=== PATIENT | male | born 1945 | race Caucasian/White ===

== ENCOUNTER 2021-09-09 11:00 | Inpatient (IN) | payer MEDICARE ==
[~2021-09-09] VITALS: Ht 190.5 cm; Wt 115.4 kg
[2021-09-09 10:00] LABS: BASOPHILS % (AUTO) 0.5 % (0.0-5.0); EOSINOPHILS % (AUTO) 2.1 % (0.0-8.0); HEMATOCRIT 46.2 % (42-54); LYMPHOCYTES % (AUTO) 28.7 % (21.0-51.0); MEAN CORPUSCULAR HEMOGLOBIN 31.6 pg (27.0-33.0); MEAN CORPUSCULAR HGB CONC 33.8 g/dL (32.0-36.0); MEAN CORPUSCULAR VOLUME 93.5 fL (79-99); MONOCYTES % (AUTO) 8.6 % (3.0-13.0); NEUTROPHILS % (AUTO) 59.5 % (40.0-77.0); PLATELET COUNT (AUTO) 319 K/uL (130-400); RED BLOOD CELL COUNT(AUTO) 4.94 MIL/uL (4.50-6.20); RED CELL DISTRIBUTION WIDTH 12.9 % (11.0-15.5); WHITE BLOOD COUNT (AUTO) 10.5 K/uL (4.8-10.8)
[2021-09-09 10:03] LABS: APPEARANCE,URINE Clear (CLEAR); BILIRUBIN,URINE Negative (NEGATIVE); COLOR,URINE Yellow (YELLOW); GLUCOSE, URINE (UA) Negative (NEGATIVE); KETONES,URINE Negative (NEGATIVE); LEUKOCYTE ESTERASE ,URINE Negative (NEGATIVE); NITRATE,URINE Negative (NEGATIVE); OCCULT BLOOD,URINE Negative (NEGATIVE); PH,URINE 7.5 (5.0-8.0); PROTEIN,URINE Negative (NEGATIVE)
[2021-09-09 10:11] LABS: INR 2.57 (0.85-1.15); PROTHROMBIN TIME 25.7 SEC (9.6-11.6)
[2021-09-09 12:05] VITALS: BP 159/77
[2021-09-09] MEDS ORDERED: PRAV80TA21 PO (13:06)
[2021-09-09] MEDS ORDERED: ENOX100D4 SQ (13:06)
[2021-09-09] MEDS ORDERED: DILT180C86 PO (13:06)
[2021-09-09] MEDS ORDERED: FISH1CAP63 PO (13:06)
[2021-09-09] MEDS ORDERED: UBID200C18 PO (13:06)
[2021-09-09] MEDS ORDERED: LIOT25TA12 PO (13:06)
[2021-09-09] MEDS ORDERED: ENAL20TA18 PO (13:06)
[2021-09-09] MEDS ORDERED: LEVO50CA4 PO (13:06)
[2021-09-09] MEDS ORDERED: CHOL400C9 PO (13:06)
[2021-09-09] MEDS ORDERED: WARF2.5T85 PO (13:06)
[2021-09-09] MEDS ORDERED: CLOP75TA14 PO (13:06)
[2021-09-12] VITALS (27 sets, daily range): BP systolic 101–168; BP diastolic 58–96
[2021-09-12] MEDS ORDERED: LACTATED RINGERS 1000ML 1,000 ML IV ONE (08:25)
[2021-09-12] MEDS ORDERED: ACETAMINOPHEN 500 MG TABLET ONE (09:10)
[2021-09-12] MEDS ORDERED: KETOROLAC 15MG/ML VIAL (15MG/ML) ONE (09:10)
[2021-09-12] MEDS ORDERED: CELECOXIB 200 MG CAP ONE (09:11)
[2021-09-12 09:34] LABS: INR 1.22 (0.85-1.15); PROTHROMBIN TIME 13.1 SEC (9.6-11.6)
[2021-09-12] MEDS: CEFAZOLIN SODIUM 1 GM VIAL ONE ×2 (09:51→14:04)
[2021-09-12] MEDS ORDERED: ROPIVACAINE 0.5% 5MG/ML 30ML IJ ONE ×2 (13:22→17:30)
[2021-09-12] MEDS ORDERED: LIDOCAINE PF 100MG/5ML (2%) SYRINGE 5ML ONE (13:22)
[2021-09-12] MEDS ORDERED: PROPOFOL 10 MG/ML 20ML VIAL IV ONE (13:23)
[2021-09-12] MEDS ORDERED: ROCURONIUM 10MG/1ML SYR 10 MG/ML ML ONE ×2 (13:23→14:54)
[2021-09-12] MEDS ORDERED: PHENYLEPHRINE HCL 10 MG/ML 1ML VIAL IV ONE (14:07)
[2021-09-12] MEDS ORDERED: CEFAZOLIN SODIUM 1 GM VIAL ONE ×2 (14:12→16:50)
[2021-09-12] MEDS ORDERED: FENTANYL CITRATE PF 50 MCG/1 ML 2ML VIAL ONE (14:30)
[2021-09-12] MEDS ORDERED: CEFAZOLIN SODIUM 1 GM VIAL IRRIG ONE (14:37)
[2021-09-12] MEDS ORDERED: GLYCOPYRROLATE 1 MG/5 ML SYRINGE ONE ×2 (14:51→17:49)
[2021-09-12] MEDS ORDERED: EPHEDRINE SULFATE 50 MG/ML AMPULE ONE (16:28)
[2021-09-12] MEDS ORDERED: POTASSIUM CHLORIDE 20MEQ/100ML 100 ML IV PRN (17:30)
[2021-09-12] MEDS: ACETAMINOPHEN 500 MG TABLET PO SCH ×2 (17:30→20:57)
[2021-09-12] MEDS ORDERED: DiphenhydrAMINE HCL 50 MG/ML VIAL IVP PRN (17:30)
[2021-09-12] MEDS ORDERED: KETOROLAC 15MG/ML VIAL (15MG/ML) IV PRN (17:30)
[2021-09-12] MEDS ORDERED: FERROUS FUMARATE 324 MG TABLET PO PRN (17:30)
[2021-09-12] MEDS ORDERED: OXYCODONE HCL 5 MG TAB PO PRN ×2 (17:30)
[2021-09-12] MEDS ORDERED: TRAMADOL HCL 50 MG TABLET PO PRN (17:30)
[2021-09-12] MEDS ORDERED: POTASSIUM CHLORIDE 10% ELIXIR 20 MEQ/15 ML UDCUP PO PRN (17:30)
[2021-09-12] MEDS ORDERED: KCL 20 MEQ ERTAB PO PRN (17:30)
[2021-09-12] MEDS ORDERED: TEMAZEPAM 15 MG CAPSULE PO PRN (17:30)
[2021-09-12] MEDS ORDERED: ONDANSETRON 4MG INJ IVP PRN (17:30)
[2021-09-12] MEDS ORDERED: LIDOCAINE HCL-MPF 1% 2ML VIAL IV PRN (17:30)
[2021-09-12] MEDS: 0.9%NACL 1000ML 1,000 ML IV SCH ×2 (17:30→22:55)
[2021-09-12] MEDS ORDERED: NEOSTIGMINE 5MG/5ML SYR IV ONE (17:49)
[2021-09-12] MEDS ORDERED: MEPERIDINE-PF 25 MG/ML SYG ONE ×2 (18:10→18:19)
[2021-09-12] MEDS: CELECOXIB 200 MG CAP PO SCH (20:54)
[2021-09-12] MEDS: PREGABALIN 25 MG CAP PO SCH (20:55)
[2021-09-12] MEDS: FAMOTIDINE 20MG TAB PO SCH (20:55)
[2021-09-12] MEDS: DILTIAZEM 180MG SR CAP PO SCH (20:56)
[2021-09-12] MEDS: ENALAPRIL MALEATE 10 MG TABLET PO SCH (20:57)
[2021-09-12] MEDS ORDERED: WARFARIN SODIUM 5 MG TAB PO SCH (21:00)
[2021-09-12] MEDS: CEFAZOLIN SODIUM 1 GM VIAL IVP SCH (22:54)
[2021-09-13] VITALS (7 sets, daily range): BP systolic 107–127; BP diastolic 53–66
[2021-09-13 04:11] LABS: HEMATOCRIT 33.5 % (42-54); MEAN CORPUSCULAR HEMOGLOBIN 31.2 pg (27.0-33.0); MEAN CORPUSCULAR HGB CONC 32.8 g/dL (32.0-36.0); MEAN CORPUSCULAR VOLUME 94.9 fL (79-99); RED BLOOD CELL COUNT(AUTO) 3.53 MIL/uL (4.50-6.20); RED CELL DISTRIBUTION WIDTH 13.1 % (11.0-15.5); WHITE BLOOD COUNT (AUTO) 11.6 K/uL (4.8-10.8)
[2021-09-13 04:23] LABS: CREATININE 0.9 mg/dL (0.5-1.5); POTASSIUM 4.5 mmol/L (3.5-5.1)
[2021-09-13] MEDS: LEVOTHYROXINE 50 MCG TABLET PO SCH (05:49)
[2021-09-13] MEDS: CEFAZOLIN SODIUM 1 GM VIAL IVP SCH (05:50)
[2021-09-13] MEDS: PREGABALIN 25 MG CAP PO SCH ×2 (08:24→20:29)
[2021-09-13] MEDS: CALCIUM CARB 500MG PO PRN ×2 (08:24→20:31)
[2021-09-13] MEDS: ENALAPRIL MALEATE 10 MG TABLET PO SCH ×2 (08:24→20:39)
[2021-09-13] MEDS: FAMOTIDINE 20MG TAB PO SCH ×2 (08:24→20:31)
[2021-09-13] MEDS: POLYETHYLENE GLYCOL 3350 17 GM POWD.PACK PO SCH (08:24)
[2021-09-13] MEDS: CLOPIDOGREL 75MG TAB PO SCH (08:24)
[2021-09-13] MEDS: DILTIAZEM 180MG SR CAP PO SCH ×2 (08:25→20:30)
[2021-09-13] MEDS: CELECOXIB 200 MG CAP PO SCH ×2 (08:25→20:29)
[2021-09-13] MEDS: LIOTHYRONINE 25 MCG PO SCH (08:27)
[2021-09-13] MEDS: VITAMIN D PO SCH (09:00)
[2021-09-13] MEDS ORDERED: TAMSULOSIN HCL 0.4 MG CAP.ER.24H PO SCH (09:00)
[2021-09-13] MEDS: PRAVASTATIN 80MG PO SCH (09:00)
[2021-09-13] MEDS: 0.9%NACL 1000ML 1,000 ML IV SCH (13:30)
[2021-09-13] MEDS: ACETAMINOPHEN 500 MG TABLET PO SCH ×2 (14:38→20:31)
[2021-09-13] MEDS: WARFARIN SODIUM 2.5 MG TAB PO SCH (18:21)
[2021-09-13] MEDS: TAMSULOSIN HCL 0.4 MG CAP.ER.24H PO SCH (20:30)
[2021-09-14 04:13] VITALS: BP 108/50
[2021-09-14 04:46] LABS: INR 1.21 (0.85-1.15)
[2021-09-14] MEDS: LEVOTHYROXINE 50 MCG TABLET PO SCH (05:57)
[2021-09-14] MEDS: ACETAMINOPHEN 500 MG TABLET PO SCH ×3 (05:58→20:32)
[2021-09-14 07:37] VITALS: BP 101/55
[2021-09-14] MEDS: CLOPIDOGREL 75MG TAB PO SCH (08:20)
[2021-09-14] MEDS: TAMSULOSIN HCL 0.4 MG CAP.ER.24H PO SCH ×2 (08:20→20:32)
[2021-09-14] MEDS: PREGABALIN 25 MG CAP PO SCH ×2 (08:20→20:33)
[2021-09-14] MEDS: FAMOTIDINE 20MG TAB PO SCH ×2 (08:20→20:32)
[2021-09-14] MEDS: ENALAPRIL MALEATE 10 MG TABLET PO SCH ×2 (08:20→20:31)
[2021-09-14] MEDS: CELECOXIB 200 MG CAP PO SCH ×2 (08:20→20:33)
[2021-09-14] MEDS: DILTIAZEM 180MG SR CAP PO SCH ×2 (08:20→20:31)
[2021-09-14] MEDS: POLYETHYLENE GLYCOL 3350 17 GM POWD.PACK PO SCH (08:21)
[2021-09-14] MEDS: VITAMIN D PO SCH (08:33)
[2021-09-14] MEDS: WARFARIN SODIUM 2.5 MG TAB PO SCH (08:33)
[2021-09-14] MEDS: PRAVASTATIN 80MG PO SCH (08:33)
[2021-09-14] MEDS: LIOTHYRONINE 25 MCG PO SCH (08:34)
[2021-09-14] MEDS ORDERED: WARFARIN SODIUM 7.5 MG TAB PO SCH (09:30)
[2021-09-14] MEDS: ENOXAPARIN SODIUM 40 MG/0.4 ML SYRINGE SQ SCH ×2 (09:36→20:34)
[2021-09-14 11:13] VITALS: BP 110/56
[2021-09-14 16:02] VITALS: BP 110/55
[2021-09-14] MEDS ORDERED: WARF10TA45 PO ×2 (16:37)
[2021-09-14] MEDS ORDERED: WARFARIN SODIUM 2 MG TAB PO SCH (17:20)
[2021-09-14 20:17] VITALS: BP 99/48
[2021-09-14 23:43] VITALS: BP 109/48
[2021-09-15 03:54] VITALS: BP 117/68
[2021-09-15 05:12] LABS: INR 1.12 (0.85-1.15); PROTHROMBIN TIME 12.1 SEC (9.6-11.6)
[2021-09-15] MEDS: LEVOTHYROXINE 50 MCG TABLET PO SCH (05:57)
[2021-09-15] MEDS: ACETAMINOPHEN 500 MG TABLET PO SCH ×2 (05:57→13:55)
[2021-09-15 07:52] VITALS: BP 117/51
[2021-09-15] MEDS: PRAVASTATIN 80MG PO SCH (09:00)
[2021-09-15] MEDS: VITAMIN D PO SCH (09:00)
[2021-09-15] MEDS: LIOTHYRONINE 25 MCG PO SCH (09:00)
[2021-09-15] MEDS: POLYETHYLENE GLYCOL 3350 17 GM POWD.PACK PO SCH (09:12)
[2021-09-15] MEDS: ENOXAPARIN SODIUM 40 MG/0.4 ML SYRINGE SQ SCH ×2 (09:13→16:29)
[2021-09-15] MEDS: CLOPIDOGREL 75MG TAB PO SCH (09:15)
[2021-09-15] MEDS: FAMOTIDINE 20MG TAB PO SCH (09:15)
[2021-09-15] MEDS: DILTIAZEM 180MG SR CAP PO SCH (09:15)
[2021-09-15] MEDS: TAMSULOSIN HCL 0.4 MG CAP.ER.24H PO SCH (09:15)
[2021-09-15] MEDS: CELECOXIB 200 MG CAP PO SCH (09:15)
[2021-09-15] MEDS: PREGABALIN 25 MG CAP PO SCH (09:16)
[2021-09-15] MEDS: ENALAPRIL MALEATE 10 MG TABLET PO SCH (09:16)
[2021-09-15 11:36] VITALS: BP 117/50
[2021-09-15] MEDS ORDERED: ENOX100D4 SQ (14:48)
[2021-09-15] MEDS ORDERED: HYDR-4060 PO (14:48)
[2021-09-15] MEDS ORDERED: WARFARIN SODIUM 2 MG TAB PO SCH (16:00)
[2021-09-15] MEDS ORDERED: BISACODYL 10 MG SUPP.RECT RC PRN (17:30)
[2021-09-20] MEDS ORDERED: WARFARIN SODIUM 10 MG TABLET PO SCH (16:00)
== END 2021-09-15 17:00 | disposition home health service (06) | DRG 470 ==
LOC: EDSTATUS 11:00 → DAHIP 09-12 08:16 → 4AH 09-12 18:49
PROVIDERS: ADMIT Orthopaedic Surgery; ATTEND Orthopaedic Surgery
PROC: 0SRB0JZ Replacement of Left Hip Joint with Synthetic Substitute, Open Approach (ICD-10-PCS; principal; 2021-09-12 14:31)
DX: M16.12 Unilateral primary osteoarthritis, left hip (principal); I48.0 Paroxysmal atrial fibrillation; I10 Essential (primary) hypertension; E78.5 Hyperlipidemia, unspecified; E03.9 Hypothyroidism, unspecified; Z20.822 Contact with and (suspected) exposure to COVID-19; D64.9 Anemia, unspecified; Z96.651 Presence of right artificial knee joint; Z82.49 Family history of ischemic heart disease and other diseases of the circulatory system; Z87.891 Personal history of nicotine dependence; Z79.01 Long term (current) use of anticoagulants; Z86.73 Personal history of transient ischemic attack (TIA), and cerebral infarction without residual deficits
CPT/HCPCS: 36415; 73503; 80048; 81003; 85025; 85027; 85610; 86850; 86900; 86901; 87635; 87641; 96374; 97039; C1776; G0378; J0690; J1650; J1885; J2001; J2175; J2370; J2704; J2710; J2795; J3010; J3490; J7030; J7040; J7120

== ENCOUNTER → 2022-09-04 | Outpatient (CLI) | payer MEDICARE ==
[~2022-09-04] MED LIST: CLOP-31 PO; DILT120T PO; ENAL-91 PO; LEVO50CA4 PO; MULT-1203 PO; OMEG-125 PO; PRAV80TA21 PO; UBID200C18 PO; WARF10TA45 PO; WARF7.5T49 PO
== END | disposition home or self-care (01) ==
LOC: LAB 11:45
PROVIDERS: ATTEND Internal Medicine Cardiovascular Disease
DX: I10 Essential (primary) hypertension (principal)
CPT/HCPCS: 36415; 83880

== ENCOUNTER → 2022-09-06 | Outpatient (CLI) | payer MEDICARE | END | disposition home or self-care (01) | LOC: SHCH 14:01 | PROVIDERS: ATTEND Internal Medicine Cardiovascular Disease | DX: I34.0 Nonrheumatic mitral (valve) insufficiency (principal); I25.5 Ischemic cardiomyopathy | CPT/HCPCS: 93306 ==

== ENCOUNTER → 2022-09-13 | Outpatient (CLI) | payer MEDICARE ==
[2022-09-13 10:56] LABS: INR 1.46 (0.85-1.15); PROTHROMBIN TIME 15.6 SEC (9.6-11.6)
[2022-09-13 10:57] LABS: PARTIAL THROMBOPLASTIN TIME 33.7 SEC (26.3-35.5)
[2022-09-13 15:53] LABS: SPECIMENTYPE,BODY FLUID PLEURAL
[2022-09-13 15:54] LABS: APPEARANCE BODY FLUID SLIGHTLY CLOUDY (CLEAR); COLOR,BODY FLUID YELLOW (LT YELLOW); TOTAL VOLUME,BODY FLUID 1500 mL
[2022-09-13 15:57] LABS: BODY FLUID RBC 856 /cu. mm.; BODY FLUID WBC 378 /cu. mm.
[2022-09-13 17:01] LABS: BF LYMPHOCYTE 65 %
== END | disposition home or self-care (01) ==
LOC: RAH 10:00
PROVIDERS: ATTEND Internal Medicine Cardiovascular Disease
DX: R06.02 Shortness of breath (principal); J90 Pleural effusion, not elsewhere classified; Z79.899 Other long term (current) drug therapy
CPT/HCPCS: 32555; 71045; 89051; 85610; 85730; 87071; 87205; 36415; C1729

== ENCOUNTER 2024-03-02 00:18 | Emergency (ER) | payer MEDICARE ==
[~2024-03-02] VITALS: Ht 190.5 cm; Wt 113.4 kg
[2024-03-02 00:20] VITALS: BP 133/68; PULSE 84; RESP 18; TEMP 97.1; O2SAT 97
[2024-03-02] MEDS ORDERED: OCTYL 2-CYANOACRYLATE 1 EACH TP ONE (00:30)
== END 2024-03-02 01:54 | disposition home or self-care (01) ==
LOC: EDH 00:18
DX: S91.115A Laceration without foreign body of left lesser toe(s) without damage to nail, initial encounter (principal); E03.9 Hypothyroidism, unspecified; E11.9 Type 2 diabetes mellitus without complications; E78.00 Pure hypercholesterolemia, unspecified; I10 Essential (primary) hypertension; I48.91 Unspecified atrial fibrillation; M19.90 Unspecified osteoarthritis, unspecified site; Z79.01 Long term (current) use of anticoagulants; Z79.890 Hormone replacement therapy; Z86.73 Personal history of transient ischemic attack (TIA), and cerebral infarction without residual deficits; Z95.1 Presence of aortocoronary bypass graft; W45.8XXA Other foreign body or object entering through skin, initial encounter; Y93.89 Activity, other specified; Y92.89 Other specified places as the place of occurrence of the external cause; Y99.8 Other external cause status
CPT/HCPCS: 12001; 99282

== ENCOUNTER 2025-04-14 08:06 | Observation (INO) | payer MEDICARE ==
[~2025-04-14] VITALS: Ht 188 cm; Wt 105.7 kg
[~2025-04-14 08:06] MED LIST changes: -LEVO50CA4 PO; +LEVO50CA5 PO; -PRAV80TA21 PO; +PRAV80TA75 PO
[2025-04-14 08:37] LABS: IMMATURE GRANULOCYTE ABSOLUTE 0.06 K/uL (0-1); NUCLEATED RED BLOOD CELLS 0.0 % (0.0-0.19); PLATELET COUNT (AUTO) 298 K/uL (130-400); RED BLOOD CELL COUNT(AUTO) 5.03 MIL/uL (4.50-6.20); RED CELL DISTRIBUTION WIDTH 13.2 % (11.0-15.5); WHITE BLOOD COUNT (AUTO) 15.1 K/uL (4.8-10.8)
[2025-04-14 08:46] LABS: CREATININE 0.9 mg/dL (0.5-1.3); GLOMERULAR FILTR. RATE CALC 86.0 mL/min (>90); GLUCOSE,RANDOM 121.0 mg/dL (70-105); SODIUM SERUM 137.0 mmol/L (136-145); UREA NITROGEN, BLOOD 9.0 mg/dL (7-18)
--- NOTE | 2025-04-14 08:46 | EKG ---
[facility] Test Date: 2025-04-14 Test Time: 08:16:48 Pat Name: CLIFF DAVIS Department: [facility] Room: 226 Gender: M Data Collection Interviewer: [id number] : 1945 Requested By: PRICILA MONTERO Order Number: [id number] Reading MD: Rama Shipman Measurements Intervals [place] Rate: 88 P: 0 TX: 0 QRS: -9 QRSD: 97 T: 34 QT: 395 QTc: 478 Interpretive Statements Atrial fibrillation Anterior infarct, old Compared to ECG 06/14/2022 06:05:42 Myocardial infarct finding now present ST (T wave) deviation no longer present Possible ischemia no longer present Prolonged QT interval no longer present Electronically Signed On 04-15-2025 08:44:45 SUPPLY CHAIN TECH by Rama Shipman Please click the below link to view image of tracing.
--- NOTE | 2025-04-14 08:48 | HMCIMG ---
EXAM: CR Chest, single view. CLINICAL HISTORY: Shortness of breath. COMPARISON: None FINDINGS: The lungs show no infiltrate or other acute findings. No pleural effusion or pneumothorax. Poststernotomy status. Moderate cardiomegaly with bilateral pulmonary congestion. Probable cardiac loop recorder in the left parasternal region. No acute osseous abnormality. IMPRESSION: Poststernotomy status. Moderate cardiomegaly with bilateral pulmonary congestion. Probable cardiac loop recorder in the left parasternal region. /[place]
[2025-04-14 08:51] LABS: ASPARTATE AMINOTRANSFERASE 21.0 U/L (10-37); CREATINE KINASE, TOTAL 53.0 U/L (21-232); TOTAL PROTEIN, SERUM 8.1 g/dL (6.0-8.3)
[2025-04-14 09:47] LABS: INR 1.14 (0.85-1.15)
[2025-04-14] MEDS: ASPIRIN 81 MG EC TAB PO SCH (10:00)
[2025-04-14] MEDS ORDERED: BENZONATATE 100 MG CAPSULE PO PRN (10:00)
[2025-04-14 10:20] LABS: ABG BASE EXCESS 2.4 mmol/L (-2.0-3.0); ABG HCO3 26.4 mmol/L (21.0-28.0); ABG OXYGEN SATURATION 94.6 % (94.0-98.0); ABG PCO2 39 mmHg (35-48); ABG PH 7.449 (7.350-7.450); CARBON MONOXIDE 1.3 % (0.5-1.5); DEVICE COMMENT LR; PO2, ARTERIAL BG 68.5 mmHg (83.0-108.0); TEMPERATURE, CELSIUS BG 37.0 CELSIUS (35.5-37.0); VENT MODE, BG RA (ROOM AIR)
[2025-04-14 10:28] LABS: ASPARTATE AMINOTRANSFERASE 19.0 U/L (10-37); CREATINE KINASE, TOTAL 50.0 U/L (21-232); CREATININE 0.8 mg/dL (0.5-1.3); GLOMERULAR FILTR. RATE CALC 89.0 mL/min (>90); GLUCOSE,RANDOM 112.0 mg/dL (70-105); SODIUM SERUM 136.0 mmol/L (136-145); TOTAL PROTEIN, SERUM 7.5 g/dL (6.0-8.3); UREA NITROGEN, BLOOD 9.0 mg/dL (7-18)
[2025-04-14] MEDS: DOXYCYCLINE 100MG+NS 250ML 250 ML IV SCH (10:41)
--- NOTE | 2025-04-14 10:44 | ERN ---
ED Note History of Present Illness Stated Complaint: ACUTE ON CHRONIC CHF,SUSPECTED CAP,HYPOXIC RESP F Chief Complaint: Shortness of Breath Time Seen by MD: 08:16 Dictation: 79-year-old male presents to the emergency department generalized weakness and shortness of breath over the past few days worse this morning. Patient has a history of CHF and atrial fibrillation on Eliquis. Patient denies any fever or increasing cough. Allergies: Coded Allergies: No Allergy Information Available (Verified Allergy, Unknown, 06/11/22) Home Meds Reported Medications Multivitamin (Multi Vitamin Daily) 1 Each Tablet, 1 EACH PO HS, TAB 06/20/22 Ubidecarenone (Co Q-10) 200 Mg Capsule, 200 MG PO HS, CAP 06/20/22 Pray-3S/Dha/Epa/Fish Oil (Fish Oil Pray-3 Softgel) 1 Each Capsule.dr, 1 EACH PO AM, CAP 06/20/22 Clopidogrel Bisulfate (Plavix) 75 Mg Tablet, 75 MG PO AM, TAB 06/20/22 Levothyroxine Sodium (Levothyroxine) 50 Mcg Capsule, 50 MCG PO ACBKFST, CAP 06/20/22 Pravastatin Sodium (Pravastatin Sodium) 80 Mg Tablet, 80 MG PO HS, TAB 06/20/22 Enalapril Maleate (Enalapril Maleate) 20 Mg Tablet, 20 MG PO BID, TAB 06/20/22 Diltiazem HCl (Diltiazem HCl) 120 Mg Tablet, 180 MG PO BID, TAB 06/20/22 Warfarin Sodium (Warfarin Sodium) 10 Mg Tablet, 10 MG PO every sunday, TAB 06/20/22 Warfarin Sodium (Warfarin Sodium) 7.5 Mg Tablet, 8 MG PO [id number], TAB 06/20/22 Levothyroxine Sodium (Levothyroxine) 50 Mcg Capsule, 50 MCG PO DAILY, CAP 09/09/21 Past Medical History Past Medical History: A-Fib, Cancer, CHF, Hypertension, Hypothyroid, Other Additional Past Medical Hx: CELL CARCINOMA, TIA Surgical History: CABG, Other Surgical History Other: ROTATOR CUFF, LEFT HIP REPLACED Social History: Negative, Lives with family Review of System Dictation Constitutional: Negative for fever,chills, and weight loss Eyes: Negative for injury, pain,redness, and discharge ENT: Negative for injury,pain or swelling Cardiovascular: Negative for chest pain, palpitations, and edema Respiratory: Per HPI Abdomen/GI: Negative for abdominal pain, nausea, vomiting, diarrhea, and constipation Back: Negative for injury and pain : Negative for injury, bleeding and discharge MS/Extremity: Negative for injury and deformity Skin: Negative for rash, and discoloration Neuro: Negative for headache, weakness, numbness, tingling, and seizure Psych: Negative for suicide ideation, homicidal ideation, and hallucinations Initial Vital Sign VS Vital Signs Date Time Temp Pulse Resp B/P (MAP) Pulse Ox O2 Delivery O2 Flow Rate FiO2 04/14/25 08:11 97.3 96 20 138/93 95 0 04/14/25 09:02 Nasal Cannula* 28 Physical Exam Dictation General: awake, alert, NAD Head/Face: Normocephalic, atraumatic Eyes: PERRL, EOMI, vision at baseline ENT: oral cavity clear, TMs clear, no signs of infection Neck: Trachea midline, supple, no nuchal rigidity Cardiovascular: RRR, normal S1/S2, No MRGs, no JVD Respiratory: Crackles at the bases bilaterally Abdomen: Soft, non-tender, non-distended, normal bowel sounds, no guarding or rebound. Skin: Warm, dry, normal turgor, no rash MS/Extremity: Pulses equal, no cyanosis, neurovascular intact, FROM Neuro: COAx4, GCS 15, strength 5/5, CN 2-12 intact, normal cerebellar exam, normal gait, Psych: Normal behavior, mood, and affect normal Results (Laboratory/Radiology) Laboratory/Radiology Laboratory Tests Test 04/14/25 08:28 04/14/25 09:53 04/14/25 10:19 White Blood Count 15.1 K/uL (4.8-10.8) H Red Blood Count 5.03 MIL/uL (4.50-6.20) Hemoglobin 15.1 g/dL (14.0-18.0) Hematocrit 46.9 % (42-54) Mean Corpuscular Volume 93.2 fL (79-99) Mean Corpuscular Hemoglobin 30.0 pg (27.0-33.0) Mean Corpuscular Hemoglobin Concent 32.2 g/dL (32.0-36.0) Red Cell Distribution Width 13.2 % (11.0-15.5) Platelet Count 298 K/uL (130-400) Mean Platelet Volume 10.9 fL (7.5-10.5) H Immature Granulocyte % (Auto) 0.4 % (0-1) Neutrophils (%) (Auto) 81.4 % (40.0-77.0) H Lymphocytes (%) (Auto) 10.0 % (21.0-51.0) L Monocytes (%) (Auto) 7.9 % (3.0-13.0) Eosinophils (%) (Auto) 0.1 % (0.0-8.0) Basophils (%) (Auto) 0.2 % (0.0-5.0) Neutrophils # (Auto) 12.3 K/uL (1.8-7.7) H Lymphocytes # (Auto) 1.5 K/uL (1.0-4.8) Monocytes # (Auto) 1.2 K/uL (0.1-1.0) H Eosinophils # (Auto) 0.02 K/uL (0.00-0.70) Basophils # (Auto) 0.03 K/uL (0.00-0.20) Absolute Immature Granulocyte (auto 0.06 K/uL (0-1) Nucleated Red Blood Cells 0.0 % (0.0-0.19) Prothrombin Time 11.9 SEC (9.6-11.6) H Prothromb Time International Ratio 1.14 (0.85-1.15) Activated Partial Thromboplast Time 30.8 SEC (26.3-35.5) Sodium Level 137 mmol/L (136-145) Potassium Level 3.9 mmol/L (3.5-5.1) Chloride Level 99 mmol/L (101-111) L Carbon Dioxide Level 32 mmol/L (21-32) Blood Urea Nitrogen 9 mg/dL (7-18) Creatinine 0.9 mg/dL (0.5-1.3) Glomerular Filtration Rate Calc 86 mL/min (>90) Random Glucose 121 mg/dL (70-105) H Lactic Acid Level 2.4 mmol/L (0.8-2.5) 1.4 mmol/L (0.8-2.5) Total Calcium 9.1 mg/dL (8.5-10.1) Total Bilirubin 1.4 mg/dL (0.2-1.0) H Direct Bilirubin 0.4 mg/dL (0.0-0.3) H Aspartate Amino Transf (AST/SGOT) 21 U/L (10-37) Alanine Aminotransferase (ALT/SGPT) 16 U/L (12-78) Alkaline Phosphatase 108 U/L (50-136) Total Creatine Kinase 53 U/L (21-232) # Troponin I High Sensitivity 35 ng/L (4-75) B-Type Natriuretic Peptide 1360 pg/mL (0-100) H Total Protein 8.1 g/dL (6.0-8.3) Albumin 3.9 g/dL (3.5-5.0) Procalcitonin < 0.05 ng/mL (0.05-0.5) L Blood Gas Specimen Type Arterial Arterial Blood pH 7.449 (7.350-7.450) Arterial Blood Partial Pressure CO2 39 mmHg (35-48) Arterial Blood Partial Pressure O2 68.5 mmHg (83.0-108.0) L Arterial Blood HCO3 26.4 mmol/L (21.0-28.0) Arterial Blood Oxygen Saturation 94.6 % (94.0-98.0) Arterial Blood Base Excess 2.4 mmol/L (-2.0-3.0) Hemoglobin (Blood Gas) 15.7 g/dL (13.5-17.5) Sodium (Blood Gas) 140 MMOL/L (136-145) Bedside Potassium (Blood Gas) 3.6 MMOL/L (3.4-4.5) Bedside Chloride (Blood Gas) 100 MMOL/L (98-107) Bedside Glucose (Blood Gas) 113 MG/DL (65-95) H Bedside Ionized Calcium (Blood Gas) 1.16 MMOL/L (1.15-1.33) Bedside Lactic Acid (Blood Gas) 1.31 MMOL/L (0.36-0.75) H Blood Gas Temperature 37.0 CELSIUS (35.5-37.0) Blood Gas Vent Mode RA (ROOM AIR) FiO2 21.0 % Blood Gas Specimen Comment LR Labs Reviewed?: Yes EKG Comment: Atrial fibrillation heart rate 88 no STEMI or STEMI equivalent ED Course ED Course Orders Procedure Category Date Status Time B-Type Natriuretic LAB 04/14/25 In Process Peptide 08:16 12 Lead Ekg Tracing- EKG 04/14/25 Complete Technical 08:16 Basic Metabolic Panel LAB 04/14/25 Complete 08:16 Blood Cult PIEDAD 04/14/25 In Process 08:16 Cbc With Differential LAB 04/14/25 In Process 08:16 Creatine Kinase, Total LAB 04/14/25 Complete 08:16 Hepatic Function Panel LAB 04/14/25 Complete 08:16 Lactic Acid LAB 04/14/25 Complete 08:16 Pt And Ptt LAB 04/14/25 Complete 08:16 Troponin I High LAB 04/14/25 Complete Sensitivity 08:16 Chest 1vw RAD 04/14/25 Resulted 08:16 Covid19 (Sars Antigen LAB 04/14/25 Logged Rapid) 08:16 Furosemide 40mg Vial PHA 04/14/25 Complete (Lasix 40mg Vial) 09:22 Vital Signs(Adult CPOE 04/14/25 Transmitted Hospitalist) 09:36 Daily Weights CPOE 04/14/25 Transmitted 09:36 I&O Q Shift CPOE 04/14/25 Transmitted 09:36 Ondansetron 4mg Inj PHA 04/14/25 In Process (Zofran 4mg Inj) 10:00 Ipratropium 0.5 PHA 04/14/25 In Process Mg/2.5 Ml Inh 10:00 Nurse To Enter Home CPOE 04/14/25 Transmitted Medication 09:36 Admit Orders ADM 04/14/25 Transmitted 09:36 Heart Healthy Diet DIET 04/14/25 Transmitted Lunch Apply Scds CPOE 04/14/25 Transmitted 09:36 Comprehensive LAB 04/14/25 In Process Metabolic Panel 09:36 Thyroid Stimulating LAB 04/14/25 In Process Hormone 09:36 Cardiac Panel LAB 04/14/25 In Process 09:36 Cardiac Panel LAB 04/14/25 Logged 17:36 Cardiac Panel LAB 04/15/25 Verified 01:36 Lactic Acid LAB 04/14/25 In Process 09:36 Respiratory Cult PIEDAD 04/14/25 Logged W/Gram Stain 09:36 Arterial Blood Gas RT 04/14/25 Transmitted 09:36 Procalcitonin LAB 04/14/25 Complete 09:36 Echo 2-D Complete ECHO 04/14/25 Logged 09:36 Case Management CM 04/14/25 Transmitted Evaluation 09:36 Pt Eval Request PT 04/14/25 Transmitted 09:36 Famotidine 20mg Tab PHA 04/14/25 In Process (Pepcid 20mg Tab) 21:00 Furosemide 40mg Vial PHA 04/14/25 In Process (Lasix 40mg Vial) 21:00 Doxycycline 100mg+Ns PHA 04/14/25 In Process 250ml (Doxycycline 10:00 Benzonatate 100 Mg PHA 04/14/25 In Process Capsule (Tessalon 100 10:00 Hydralazine 20mg Inj PHA 04/14/25 In Process (Apresoline 20mg In 10:00 Aspirin 81mg Ec Tab PHA 04/14/25 In Process (Aspirin 81mg Ec Tab 10:00 Ceftriaxone 2gm Vial PHA 04/14/25 In Process (Rocephin 2gm Inj) 10:00 Sodium Chloride 3% PHA 04/14/25 Complete Inh (Sodium Chloride 09:57 Arterial Blood Gas LAB 04/14/25 Complete Arterial + 10:19 Current Medications Medications (Trade) Dose Ordered Sig/Chema Route PRN Reason Start Time Stop Time Status Last Admin Dose Admin Furosemide (LASix 40MG VIAL) 80 mg ONCE STAT IV 04/14/25 09:22 04/14/25 09:24 DC 04/14/25 10:13 Vital Signs Date Time Temp Pulse Resp B/P (MAP) Pulse Ox O2 Delivery O2 Flow Rate FiO2 04/14/25 09:02 98.1 75 20 164/83 98 Nasal Cannula* 2 28 04/14/25 08:11 97.3 96 20 138/93 95 0 Medical Decision Making MDM MDM: Differential diagnosis: Rationale: Tests considered and ordered secondary to shared decision making include: labs, ECG and radiology Previous outside records reviewed: Old ER visits. Risk of complication and/or morbidity or mortality of patient management: None Medications-Per medication reconciliation Need for hospitalization: Patient does meet criteria for hospitalization. Need for emergency major/minor surgery: No There are no social concerns with this patient. Prescription drug management Prescriptions will include symptomatic care Patient's prior external medical records from other ER visits were reviewed by me as indicated. Prior testing and results from previous visits were reviewed. Prior tests were taken into account with medical decision making and resource utilization, independent historian/historians were used to obtain complete medical history. I independently interpreted the test that were performed, results were reviewed by me and considered findings on radiology if ordered. Medical management and examination interpretation discussions were had by me with other qualified healthcare professionals as indicated for the patient's care. 79-year-old male CHF exacerbation acute on chronic fluid overload, hypoxemia on ABG placed on oxygen and IV Lasix emanating for further care and evaluation. Critical Care Note Comment(s) Total critical care time was 33 minutes. Excluding time for procedures. Management of critically ill patient with concern for acute decompensation. Management included interpretation of laboratory values and imaging, h emodynamics, time for consultation with consultants and admitting physician. DX & DISP Disposition: Inpatient Departure Impression: Primary Impression: Acute exacerbation of CHF (congestive heart failure) Additional Impression: Hypoxemia Condition: Stable Referrals: DAVID HUERTAS MD (PCP) PRICILA MONTERO MD Apr 14, 2025 10:44
[2025-04-14 10:49] VITALS: PULSE 90; RESP 20
[2025-04-14] MEDS: SODIUM CHLORIDE 3% FOR INHALATION 4 ML/AMP VIAL.NEB IH ONE ×3 (10:49→20:05)
[2025-04-14 10:50] VITALS: PULSE 92; RESP 20; O2SAT 98
[2025-04-14 15:02] VITALS: PULSE 88; RESP 20
--- NOTE | 2025-04-14 15:47 | NUR ---
DCP:HOME Pt currently lives at home with his Rafaela Brown [phone]. Pt does have a cane, walker, and CPAP that he uses at home. Pt denies having a provider or home health services. Pt states that he can complete ADLs independently. PCP is Dr. Johnathan Bowman and uses [facility] for any RX needs. At DC pt will want to go home and family can assist with transportation.
--- NOTE | 2025-04-14 17:12 | HP ---
[facility] HISTORY & PHYSICAL Date Patient Seen: Apr 14, 2025 Time of Visit: 16:48 Supervising Physician: Dr. Lamar Gilbert Primary Care Physician: Dr. Johnathan Bowman Outpatient Specialists: Dr. Matt Robert (Cardiology) Inpatient Consults: Dr. Matt Robert (Cardiology) PROBLEM LIST: Acute hypoxic respiratory failure, requiring supplemental oxygen Acute on chronic systolic CHF exacerbation, (echo LV EF 35-40%) Hypertension uncontrolled CHRONIC PROBLEM LIST: CAD s/p CABG 2022 Hypertension Hyperlipidemia Atrial fibrillation on anticoagulation, Eliquis 5 mg p.o. b.i.d. Obesity, BMI 31.8 PLAN: Telemetry. Supplemental oxygen, keep SpO2 greater than 92%. Lasix 40 mg IV b.i.d. Diet heart healthy, 2 g low-sodium Fluid limit 1.5 L a day Strict I&O Daily weight Review and reconcile patient's home medications GI prophylaxis Protonix 40 mg p.o. DVT prophylaxis managed with Eliquis 5 mg p.o. b.i.d. Antibiotics: Ceftriaxone 2 g IV Q 24 hours and doxycycline 100 mg IV b.i.d. HPI: Preston Brown, 79-year-old gentleman patient of Dr. Johnathan Bowman, health history: AFib, on anticoagulation therapy, Eliquis 5 mg p.o. b.i.d., CHF, (echo last EF 35-40%), hypertension, CAD status post CABG 2022, hypothyroidism, hyperlipidemia, and obesity presents to the emergency department today, on 04/14/2025 with dyspnea patient reports onset two days ago and progressively worsening quickly. Laboratory results: WBC 15.1, hemoglobin 15.1, hematocrit 46.9%, platelets 298, sodium 136, potassium 3.5, BUN nine, creatinine 0.8, GFR 89, lactic acid 1.5, total calcium 8.9, BNP 1360 albumin 3.6, TSH 0.94.. Vital signs: Temp 98.1, pulse 75, respirations 20, blood pressure 164/83, oxygen saturation 98% on 2 L, FiO2 28 Chest x-ray one view cardiomegaly with pulmonary vascular congestion. Patient was assessed and seen in the ED Stephens#[id number], with spouse present, awake alert and oriented requiring supplemental oxygen. PAST MEDICAL HX: see above PAST SURGICAL HX: noncontributory SOCIAL HISTORY: No tobacco, ETOH, or illicit drug use Coded Allergies: No Allergy Information Available (Verified Allergy, Unknown, 06/11/22) REVIEW OF SYSTEMS: 12 point ROS reviewed with patient. Pertinent positives mentioned above. Otherwise negative. PHYSICAL EXAM: GENERAL: alert, weak, awake oriented x 3 HEENT: EOMI, Sclera non icteric, moist mucosa NECK: Supple, no JVD, trachea midline LUNGS: Clear breath sounds bilaterally. No wheezes HEART: Regular rate and rhythm. Normal S1 and S2, without murmurs ABD: Abdomen soft, nontender. Bowel sounds present EXT: No clubbing cyanosis or edema NEURO: Alert and oriented to person, follows commands Vital Signs (last 8hr) Date Time Temp Pulse Resp B/P (MAP) Pulse Ox O2 Delivery O2 Flow Rate FiO2 04/14/25 15:02 88 20 04/14/25 10:50 92 20 N/Cannula Low lpm 2.0 28 04/14/25 10:49 90 20 04/14/25 09:02 98.1 75 20 164/83 98 Nasal Cannula* 2 28 LABS: Hematology Labs: Test 04/14/25 08:28 Range/Units White Blood Count 15.1 H 4.8-10.8 K/uL Red Blood Count 5.03 4.50-6.20 MIL/uL Hemoglobin 15.1 14.0-18.0 g/dL Hematocrit 46.9 42-54 % Mean Corpuscular Volume 93.2 79-99 fL Mean Corpuscular Hemoglobin 30.0 27.0-33.0 pg Mean Corpuscular Hemoglobin Concent 32.2 32.0-36.0 g/dL Red Cell Distribution Width 13.2 11.0-15.5 % Platelet Count 298 130-400 K/uL Mean Platelet Volume 10.9 H 7.5-10.5 fL Immature Granulocyte % (Auto) 0.4 0-1 % Neutrophils (%) (Auto) 81.4 H 40.0-77.0 % Lymphocytes (%) (Auto) 10.0 L 21.0-51.0 % Monocytes (%) (Auto) 7.9 3.0-13.0 % Eosinophils (%) (Auto) 0.1 0.0-8.0 % Basophils (%) (Auto) 0.2 0.0-5.0 % Neutrophils # (Auto) 12.3 H 1.8-7.7 K/uL Lymphocytes # (Auto) 1.5 1.0-4.8 K/uL Monocytes # (Auto) 1.2 H 0.1-1.0 K/uL Eosinophils # (Auto) 0.02 0.00-0.70 K/uL Basophils # (Auto) 0.03 0.00-0.20 K/uL Absolute Immature Granulocyte (auto 0.06 0-1 K/uL Nucleated Red Blood Cells 0.0 0.0-0.19 % White Cell Morphology Comment See comments Chemistry Labs: Test 04/14/25 11:38 04/14/25 09:53 04/14/25 08:28 Range/Units Lactic Acid Level 1.5 0.8-2.5 mmol/L Sodium Level 136 136-145 mmol/L Potassium Level 3.5 3.5-5.1 mmol/L Chloride Level 99 L 101-111 mmol/L Carbon Dioxide Level 33 H 21-32 mmol/L Blood Urea Nitrogen 9 7-18 mg/dL Creatinine 0.8 0.5-1.3 mg/dL Glomerular Filtration Rate Calc 89 >90 mL/min Random Glucose 112 H 70-105 mg/dL Total Calcium 8.9 8.5-10.1 mg/dL Total Bilirubin 1.4 H 0.2-1.0 mg/dL Aspartate Amino Transf (AST/SGOT) 19 10-37 U/L Alanine Aminotransferase (ALT/SGPT) 14 12-78 U/L Alkaline Phosphatase 98 50-136 U/L Total Creatine Kinase 50 21-232 U/L Troponin I High Sensitivity 49.5 4-75 ng/L Total Protein 7.5 6.0-8.3 g/dL Albumin 3.6 3.5-5.0 g/dL Procalcitonin < 0.05 L 0.05-0.5 ng/mL Thyroid Stimulating Hormone (TSH) 0.94 # 0.36-3.74 uIU/mL Direct Bilirubin 0.4 H 0.0-0.3 mg/dL B-Type Natriuretic Peptide 1360 H 0-100 pg/mL Coagulation Labs: Test 04/14/25 08:28 Range/Units Prothrombin Time 11.9 H 9.6-11.6 SEC Prothromb Time International Ratio 1.14 0.85-1.15 Activated Partial Thromboplast Time 30.8 26.3-35.5 SEC DIAGNOSTICS / RADIOLOGY RESULTS: EXAM: CR Chest, single view. CLINICAL HISTORY: Shortness of breath. COMPARISON: None FINDINGS: The lungs show no infiltrate or other acute findings. No pleural effusion or pneumothorax. Poststernotomy status. Moderate cardiomegaly with bilateral pulmonary congestion. Probable cardiac loop recorder in the left parasternal region. No acute osseous abnormality. IMPRESSION: Poststernotomy status. Moderate cardiomegaly with bilateral pulmonary congestion. Probable cardiac loop recorder in the left parasternal region. /[place] DICTATED BY: DUDLEY CIFUENTES Jr., MD DATE: 04/14/25945 ELECTRONICALLY SIGNED BY: DUDLEY CIFUENTES Jr., MD DATE: 04/14/25945 PLAN NEURO: Minimize central acting medications as possible. Maintain fall precautions, adequate lighting during the day PULMONARY: Supplemental 02 as needed. Maintain aspiration precautions at all times CARDIOVASCULAR: Follow hemodynamics. Vital signs per facility protocol GI & NUTRITION: Continue with nutritional support. Continue stool softeners and laxatives as needed. KIDNEYS & ELECTROLYTES: Strict monitoring of intake, output and overall fluid balance. Avoid nephrotoxic medications to the extent possible. Medications to be dosed according to renal function. Monitor electrolytes and replace as needed ENDOCRINE: Maintain blood glucose between 100-180 at all times. Hypoglycemia protocol in place INFECTIOUS DISEASE: Trend temperature, WBC and procalcitonin level Follow cultures, deescalate antibiotics as soon as possible. Panculture if new onset fever ONCOLOGY/HEMATOLOGY/COAGULATION: Monitor for s/s of bleeding Monitor hemoglobin, coagulation studies as needed SKIN: Pressure ulcer prevention per facility protocol Specialty mattress ORTHO/REHAB: Continue PT/OT Prophylaxis: Continue GI and DVT prophylaxis Code Status: Full Resuscitation Disposition: TBD Other: Total patient care time exceeds 35 minutes excluding all procedures. MEENA DAMIAN AGACNP Apr 14, 2025 17:12
[2025-04-14 17:47] LABS: CREATINE KINASE, TOTAL 61.0 U/L (21-232)
[2025-04-14] MEDS: MULTIVITAMIN TABLET PO SCH (19:41)
[2025-04-14] MEDS: FAMOTIDINE 20MG TAB PO SCH (19:41)
[2025-04-14] MEDS: (Ubidecarenone (Co Q-10) 200 MG) PO SCH (19:46)
[2025-04-14] MEDS ORDERED: ZINC220T5 PO (19:54)
[2025-04-14] MEDS ORDERED: METO-409 PO (19:54)
[2025-04-14] MEDS ORDERED: METO-391 PO (19:54)
[2025-04-14] MEDS ORDERED: APIX5TAB PO (19:54)
[2025-04-14] MEDS ORDERED: EZET10TA81 PO (19:54)
[2025-04-14] MEDS ORDERED: CHOL2000 PO (19:54)
[2025-04-14] MEDS ORDERED: EMPA10TA PO (19:54)
[2025-04-14] MEDS ORDERED: ASCO500C18 PO (19:54)
[2025-04-14] MEDS ORDERED: GABA-529 PO (19:54)
[2025-04-14] MEDS ORDERED: FURO40TA5 PO (19:54)
[2025-04-14] MEDS ORDERED: LISI5TAB21 PO (19:54)
[2025-04-14 19:55] LABS: COVID19 (SARS ANTIGEN RAPID) PRESUMPTIVE NEGATIVE (NEGATIVE); INFLUENZA TYPE A Negative For Type A (NEGATIVE); INFLUENZA TYPE B Negative For Type B (NEGATIVE)
[2025-04-14 20:06] VITALS: PULSE 60; RESP 18; RESP 20; O2SAT 99
[2025-04-14] MEDS ORDERED: LISINOPRIL 40 MG TABLET PO SCH (21:00)
[2025-04-14 22:42] VITALS: PULSE 57; RESP 18
[2025-04-14 22:43] VITALS: PULSE 57; RESP 20; O2SAT 97
[2025-04-15] VITALS (16 sets, daily range): BP systolic 126–158; BP diastolic 53–86; PULSE 50–90; RESP 16–20; TEMP 97.4–98.7; O2SAT 94–98
--- NOTE | 2025-04-15 00:03 | HMCSR ---
APPROVED REPORT EXAM: Two-dimensional and M-mode echocardiogram with Doppler and color Doppler. INDICATION ICD: Acute congestive heart failure 2D Dimensions RVDd 4.3 cm LVEF(%) 38.0 (>50%) LVED Vol(simp.) 124.0 mL IVSd 0.8 (0.7-1.1cm) FS(%) 19 % LVES Vol(simp.) 77.0 mL LVDd 5.2 (3.8-5.6cm) LA (2D) 5.7 (1.6-4.0cm) LVEF(%, simp.) 38 % PWd 1.2 (0.7-1.1cm) Ao Root(2D) 4.2 (2.0-3.7cm) LA ESV INDEX (4CH) 49.35 mL/m2 IVSs 1.0 cm LVOT diam 2.5 (1.8-2.4cm) LVDs 4.3 (2.5-4.0cm) IVC diam 2.7 cm PWs 1.6 cm Deformation Strain Apical 4 -5.9 % Apical 2 -7.8 % Apical 3 -7.1 % Global Strain -6.9 % M-Mode Dimensions EPSS 1.6 cm LA (MM) 5.9 (1.6-4.0cm) Ao Root(MM) 4.6 (2.0-3.7cm) Aortic Valve AoV Vmax 3.8 m/s Ao Peak GR 58.5 mmHg LVOT Vmax 0.9 m/s AoV VTI 0.7 m Ao Mean GR 36.9 mmHg LVOT VTI 0.17 m AN (VMAX) 1.10 cm2 AN (VTI) 1.3 cm2 Mitral Valve MV E Vmax 94.2 cm/s DECEL Time 123 ms P 1/2 T 37 ms MVA (PHT) 5.9 cm2 TDI E/E' Medial 15.2 E/E' Lateral 7.6 Medial E' Peak V 6.20 cm/s Lateral E' Peak V 12.47 cm/s Pulmonary Valve PV Vmax 0.8 m/s PV Peak GR 2.6 mmHg Tricuspid Valve TR Vmax 3.0 m/s RAP (EST) 3 mmHg RVSP 40.2 mmHg TR Peak GR 37.2 mmHg Left Ventricle The left ventricle is mildly dilated. There is paradoxical septal wall motion noted. Otherwise there is global hypokinesis of the left ventricle Mild eccentric hypertrophy of the left ventricle is noted. Left ventricle systolic function is moderate to severely depressed, estimated LVEF 35 to 40%. Indet erminate diastolic dysfunction. Right Ventricle The right ventricle is dilated. The right ventricular systolic function is normal. Atria The left atrium is severely dilated. The right atrium is severely dilated. Aortic Valve Aortic valve is trileaflet. The leaflets are thickened and calcified. Mild aortic regurgitation. Moderate aortic stenosis: Peak velocity 3.8 m/s, mean gradient 37 mmHg Mitral Valve Mild mitral annular calcification is noted. The leaflets are mildly thickened and calcified. Trace mitral regurgitation. There is no mitral valve stenosis. Tricuspid Valve The tricuspid valve is normal in structure. Moderate tricuspid regurgitation. RVSP is 37 mmHg. Pulmonic Valve Pulmonic valve is not well visualized. Great Vessels The aortic root is normal in size. IVC is dilated and collapses >50% with inspiration. Pericardium There is no pericardial effusion. Other Information Quality : Technically difficult study due to body habitus Conclusion The left atrium is severely dilated. The right atrium is severely dilated. The right ventricle is dilated. The left ventricle is mildly dilated. Mild eccentric hypertrophy of the left ventricle is noted. There is paradoxical septal wall motion noted. Otherwise there is global hypokinesis of the left ventricle Left ventricle systolic function is moderate to severely depressed, estimated LVEF 35 to 40%. Indeterminate diastolic dysfunction. Moderate aortic stenosis: Peak velocity 3.8 m/s, mean gradient 37 mmHg Mild aortic regurgitation. Trace mitral regurgitation. Moderate tricuspid regurgitation. PASP is 45 mmHg. There is no pericardial effusion.
[2025-04-15 01:47] LABS: NUCLEATED RED BLOOD CELLS 0.0 % (0.0-0.19); PLATELET COUNT (AUTO) 245.0 K/uL (130-400); RED BLOOD CELL COUNT(AUTO) 4.54 MIL/uL (4.50-6.20); RED CELL DISTRIBUTION WIDTH 13.4 % (11.0-15.5); WHITE BLOOD COUNT (AUTO) 7.4 K/uL (4.8-10.8)
[2025-04-15 02:03] LABS: CREATINE KINASE, TOTAL 46.0 U/L (21-232)
[2025-04-15] MEDS ORDERED: GABA-529 PO (08:35)
[2025-04-15] MEDS ORDERED: ROSU10TA98 PO (08:35)
[2025-04-15] MEDS: LISINOPRIL 5 MG TABLET PO SCH (08:37)
[2025-04-15 13:49] LABS: CREATININE 0.9 mg/dL (0.5-1.3); GLOMERULAR FILTR. RATE CALC 86.0 mL/min (>90); GLUCOSE,RANDOM 92.0 mg/dL (70-105); SODIUM SERUM 140.0 mmol/L (136-145); UREA NITROGEN, BLOOD 13.0 mg/dL (7-18)
[2025-04-15] MEDS ORDERED: PoTASSium chl 10% ELIXIR 20MEQ 20 MEQ/15 ML UDCUP PO PRN (14:30)
[2025-04-15] MEDS: MAGNESIUM 2GM PREMIX 50ML 50 ML IV PRN (15:00)
[2025-04-15] MEDS: PoTASSium chloRIDE 20MEQ ER 20 MEQ ERTAB PO PRN (15:00)
[2025-04-15] MEDS ORDERED: AMOX-426 PO (15:43)
[2025-04-15] MEDS ORDERED: DOXY-466 PO (15:45)
[2025-04-15] MEDS: PoTASSium chloRIDE 20MEQ ER 20 MEQ ERTAB PO ONE (16:38)
[2025-04-15] MEDS: MAGNESIUM OXIDE 400 MG TABLET PO ONE (16:38)
--- NOTE | 2025-04-15 17:35 | NUR ---
PATIENT ALERT AND ORIENTED X4 WITH SPOUSE AT BEDSIDE BEING DISCHARGED HOME. EDUCATED TO RESUME ALL HOME MEDS PER MD ORDER, PRESCRIPTION FOR ANTIBIOTICS SENT TO PHARMACY, MEDICATION EXPLAINED INCLUDING SIDE EFFECTS. IV REMOVED WITHOUT COMPLICATION. EDUCATED TO FOLLOW UP WITH DR. BRADFORD PER SCHEDULED TONEY AND PCP 2-3 DAYS. ALL QUESTIONS ANSWERED, PATIENT AND SPOUSE VERBALIZED COMPLETE UNDERSTANDING. PATIENT GATHERED ALL BELONGINGS AND TOOK WITH HIM AT [place].
--- NOTE | 2025-04-15 18:31 | DS ---
[facility] DISCHARGE SUMMARY Date Patient Seen: Apr 15, 2025 Time of Visit: 18:18 Supervising Physician: Mickey Giron MD Primary Care Physician: Dr. Johnathan Bowman Outpatient Specialists: Dr. Matt Robert (Cardiology) Inpatient Consults: Dr. Matt Robert (Cardiology) PROBLEM LIST: Acute hypoxic respiratory failure, requiring supplemental oxygen, resolved Community acquired pneumonia, improving Acute on chronic systolic CHF exacerbation, (echo LV EF 35-40%) Hypertension uncontrolled, improved CHRONIC PROBLEM LIST: CAD s/p CABG 2022 with DENIS clip Hypertension Hyperlipidemia Atrial fibrillation on anticoagulation, Eliquis 5 mg p.o. b.i.d. Obesity, BMI 31.8 HOSPITAL COURSE: HPI Preston Brown, 79-year-old gentleman patient of Dr. Johnathan Bowman, health history: AFib, on anticoagulation therapy, Eliquis 5 mg p.o. b.i.d., CHF, (echo last EF 35-40%), hypertension, CAD status post CABG 2022, hypothyroidism, hyperlipidemia, and obesity presents to the emergency department today, on 04/14/2025 with dyspnea patient reports onset two days ago and progressively worsening quickly. Laboratory results: WBC 15.1, hemoglobin 15.1, hematocrit 46.9%, platelets 298, sodium 136, potassium 3.5, BUN nine, creatinine 0.8, GFR 89, lactic acid 1.5, total calcium 8.9, BNP 1360 albumin 3.6, TSH 0.94.. Vital signs: Temp 98.1, pulse 75, respirations 20, blood pressure 164/83, oxygen saturation 98% on 2 L, FiO2 28 Chest x-ray one view cardiomegaly with pulmonary vascular in congestion. Patient was assessed and seen in the ED [place]#17, with spouse present, awake alert and oriented requiring supplemental oxygen. Today pt is awake alert and oriented x 3. He diuresed 2.7 L overnight. Pt saturating 98% at RA. Lasix switched back over to his home dose of 40mg po daily. Electrolytes were replaced per protocol. Pt had no major overnight events. Currently rate controlled. and continues on eliquis per his home meds. I have spoken to pt and p's daughter who is a nurse and have gone over his clinical findings 2 d echo report and current pneumonia infection. They both feel comfortable having pt discharged after a 6 min walk if pt does not desaturates. He will need to follow up with Dr Robert in 1-[address] Bowman in 2-3 days. Pt and daughter both verbalized understanding and in agreement. ACTIVE PROBLEM LIST FOR THE HOSPITALIZATION: CHRONIC PROBLEMS: continue previous management per PCP unless otherwise indicated PROCEDURES: as mentioned above [place] [address] [place], [place] [id number] IMAGING REPORT Signed PATIENT: PRESTON BROWN MR#: [id number] : 1945 SEX: M AGE: 79 LOCATION: EDHIP ORDER 3 STATUS: ADM IN REPORT#: [id number] SERVICE 5 REASON: ACUTE CHF ORDERING PHYSICIAN: NENITA HACKETT PROCEDURE: ECHO CMP - ECHO 2-D COMPLETE APPROVED REPORT EXAM: Two-dimensional and M-mode echocardiogram with Doppler and color Doppler. INDICATION ICD: Acute congestive heart failure 2D Dimensions RVDd 4.3 cm LVEF(%) 38.0 (>50%) LVED Vol(simp.) 124.0 mL IVSd 0.8 (0.7-1.1cm) FS(%) 19 % LVES Vol(simp.) 77.0 mL LVDd 5.2 (3.8-5.6cm) LA (2D) 5.7 (1.6-4.0cm) LVEF(%, simp.) 38 % PWd 1.2 (0.7-1.1cm) Ao Root(2D) 4.2 (2.0-3.7cm) LA ESV INDEX (4CH) 49.35 mL/m2 IVSs 1.0 cm LVOT diam 2.5 (1.8-2.4cm) LVDs 4.3 (2.5-4.0cm) IVC diam 2.7 cm PWs 1.6 cm Deformation Strain Apical 4 -5.9 % Apical 2 -7.8 % Apical 3 -7.1 % Global Strain -6.9 % M-Mode Dimensions EPSS 1.6 cm LA (MM) 5.9 (1.6-4.0cm) Ao Root(MM) 4.6 (2.0-3.7cm) Aortic Valve AoV Vmax 3.8 m/s Ao Peak GR 58.5 mmHg LVOT Vmax 0.9 m/s AoV VTI 0.7 m Ao Mean GR 36.9 mmHg LVOT VTI 0.17 m AN (VMAX) 1.10 cm2 AN (VTI) 1.3 cm2 Mitral Valve MV E Vmax 94.2 cm/s DECEL Time 123 ms P 1/2 T 37 ms MVA (PHT) 5.9 cm2 TDI E/E' Medial 15.2 E/E' Lateral 7.6 Medial E' Peak V 6.20 cm/s Lateral E' Peak V 12.47 cm/s Pulmonary Valve PV Vmax 0.8 m/s PV Peak GR 2.6 mmHg Tricuspid Valve TR Vmax 3.0 m/s RAP (EST) 3 mmHg RVSP 40.2 mmHg TR Peak GR 37.2 mmHg Left Ventricle The left ventricle is mildly dilated. There is paradoxical septal wall motion noted. Otherwise there is global hypokinesis of the left ventricle Mild eccentric hypertrophy of the left ventricle is noted. Left ventricle systolic function is moderate to severely depressed, estimated LVEF 35 to 40%. Indeterminate diastolic dysfunction. Right Ventricle The right ventricle is dilated. The right ventricular systolic function is normal. Atria The left atrium is severely dilated. The right atrium is severely dilated. Aortic Valve Aortic valve is trileaflet. The leaflets are thickened and calcified. Mild aortic regurgitation. Moderate aortic stenosis: Peak velocity 3.8 m/s, mean gradient 37 mmHg Mitral Valve Mild mitral annular calcification is noted. The leaflets are mildly thickened and calcified. Trace mitral regurgitation. There is no mitral valve stenosis. Tricuspid Valve The tricuspid valve is normal in structure. Moderate tricuspid regurgitation. RVSP is 37 mmHg. Pulmonic Valve Pulmonic valve is not well visualized. Great Vessels The aortic root is normal in size. IVC is dilated and collapses >50% with inspiration. Pericardium There is no pericardial effusion. Other Information Quality : Technically difficult study due to body habitus Conclusion The left atrium is severely dilated. The right atrium is severely dilated. The right ventricle is dilated. The left ventricle is mildly dilated. Mild eccentric hypertrophy of the left ventricle is noted. There is paradoxical septal wall motion noted. Otherwise there is global hypokinesis of the left ventricle Left ventricle systolic function is moderate to severely depressed, estimated LVEF 35 to 40%. Indeterminate diastolic dysfunction. Moderate aortic stenosis: Peak velocity 3.8 m/s, mean gradient 37 mmHg Mild aortic regurgitation. Trace mitral regurgitation. Moderate tricuspid regurgitation. PASP is 45 mmHg. There is no pericardial effusion. DICTATED BY: MATT PANDA MD DATE: 04/14/25 1053 ELECTRONICALLY SIGNED BY: MATT PANDA MD DATE: 04/15/25 0003 [facility] [address] [place] [address] IMAGING REPORT Signed PATIENT: PRESTON BROWN MR#: [id number] : 1945 SEX: M AGE: 79 LOCATION: EDH ORDER 7 STATUS: [facility] REPORT#: [id number] SERVICE 5 REASON: sob ORDERING PHYSICIAN: PRICILA MONTERO MD PROCEDURE: CXR1VW - CHEST 1VW EXAM: CR Chest, single view. CLINICAL HISTORY: Shortness of breath. COMPARISON: None FINDINGS: The lungs show no infiltrate or other acute findings. No pleural effusion or pneumothorax. Poststernotomy status. Moderate cardiomegaly with bilateral pulmonary congestion. Probable cardiac loop recorder in the left parasternal region. No acute osseous abnormality. IMPRESSION: Poststernotomy status. Moderate cardiomegaly with bilateral pulmonary congestion. Probable cardiac loop recorder in the left parasternal region. /[place] DICTATED BY: DUDLEY CIFUENTES Jr., MD DATE: 04/14/25945 ELECTRONICALLY SIGNED BY: DUDLEY CIFUENTES Jr., MD DATE: 04/14/25945 Pt hemodynamically stable and afebrile at time of discharge. PCP notified of patients admission, hospital course and discharge. New Medications: Amoxicillin/Potassium Clav (Augmentin 500-125 Tablet) 500 Mg-125 Mg Tablet 1 TAB PO BID for 10 Days, #20 TAB 0 Refills Doxycycline Monohydrate (Doxycycline Monohydrate) 100 Mg Capsule 1 CAP PO BID for 10 Days, #20 CAP 0 Refills Continued Medications: Apixaban (Eliquis) 5 Mg Tablet 1 TAB PO BID for 30 Days, #60 TAB 0 Refills Ascorbic Acid (Vitamin C) 500 Mg Capsule 1 CAP PO HS for 28 Days, #28 CAP 0 Refills Cholecalciferol (Vitamin D3) (Vitamin D3) 50 Mcg (2000 Unit) Capsule 1 CAP PO HS for 30 Days, #30 CAP 0 Refills Clopidogrel Bisulfate (Plavix) 75 Mg Tablet 75 MG PO AM, TAB Empagliflozin (Jardiance) 10 Mg Tablet 1 TAB PO DAILY for 30 Days, #30 TAB 0 Refills Ezetimibe (Zetia) 10 Mg Tablet 1 TAB PO HS for 30 Days, #30 TAB 0 Refills Furosemide (Furosemide) 40 Mg Tablet 1 TAB PO DAILY for 30 Days, #30 TAB 0 Refills Gabapentin (Gabapentin) 100 Mg Capsule 1 CAP PO DAILY for 30 Days, #90 CAP 0 Refills Gabapentin (Gabapentin) 100 Mg Capsule 50 MG PO HS, CAP Levothyroxine Sodium (Levothyroxine) 50 Mcg Capsule 50 MCG PO ACBKFST, CAP Lisinopril (Lisinopril) 5 Mg Tablet 1 TAB PO DAILY for 30 Days, #30 TAB 0 Refills Metoprolol Succinate (Metoprolol Succinate) 50 Mg Tab.er.24h 1 TAB PO HS for 30 Days, #30 TAB 0 Refills Metoprolol Succinate (Metoprolol Succinate) 100 Mg Tab.er.24h 1 TAB PO DAILY for 30 Days, #30 TAB 0 Refills Multivitamin (Multi Vitamin Daily) 1 Each Tablet 1 EACH PO HS, TAB [place]-3S/Dha/Epa/Fish Oil (Fish Oil [place]-3 Softgel) 1 Each Capsule.dr 1 EACH PO AM, CAP Rosuvastatin Calcium (Rosuvastatin Calcium) 10 Mg Tablet 20 MG PO HS, TAB Ubidecarenone (Co Q-10) 200 Mg Capsule 200 MG PO HS, CAP Zinc Sulfate (Zinc Sulfate) 50 Mg Zinc (220 Mg) Tablet 1 TAB PO HS for 30 Days, #30 TAB 0 Refills PHYSICAL EXAM: GENERAL: alert, weak, awake oriented x 3 HEENT: EOMI, Sclera non icteric, moist mucosa NECK: Supple, no JVD, trachea midline LUNGS: Clear breath sounds bilaterally. No wheezes HEART: Regular rate and rhythm. Normal S1 and S2, without murmurs ABD: Abdomen soft, nontender. Bowel sounds present EXT: No clubbing cyanosis or edema NEURO: Alert and oriented to person, follows commands FOLLOW-UP: Follow-up with PCP in 2-3 days Follow up with Dr Robert in 1-3 days. RECOMMENDATIONS: See Discharge Instructions This case was seen and discussed with my supervising physician. More than 30 minutes spent on discharge process, including evaluation of the patient, discussion with nursing staff, medication reconciliation and follow-up appointments ATTESTATION BY PHYSICIAN I reviewed the documentation, medical decision making, and treatment plan as noted by the mid-level provider above. I agree with the findings and plan of care. Mickey Giron MD, [facility] Apr 15, 2025 18:31
== END 2025-04-15 17:00 | disposition home or self-care (01) ==
LOC: EDH 08:06 → INTOOBSV 09:36 → UNDOADMOB 09:36 → EDHIP 09:36 → 2DH 04-15 02:52 → EDHIP 04-15 09:00 → 2DH 04-15 09:00
PROVIDERS: ADMIT Internal Medicine Critical Care Medicine; ATTEND Internal Medicine Critical Care Medicine
DX: J96.01 Acute respiratory failure with hypoxia (principal); I11.0 Hypertensive heart disease with heart failure; J18.9 Pneumonia, unspecified organism; I50.23 Acute on chronic systolic (congestive) heart failure; E78.5 Hyperlipidemia, unspecified; I25.10 Atherosclerotic heart disease of native coronary artery without angina pectoris; E66.9 Obesity, unspecified; E03.9 Hypothyroidism, unspecified; Z68.31 Body mass index [BMI] 31.0-31.9, adult; Z86.73 Personal history of transient ischemic attack (TIA), and cerebral infarction without residual deficits; Z79.01 Long term (current) use of anticoagulants; Z95.1 Presence of aortocoronary bypass graft; Z79.899 Other long term (current) drug therapy; Z98.890 Other specified postprocedural states; Z20.822 Contact with and (suspected) exposure to COVID-19
CPT/HCPCS: 96376 ×2; 96365; 96366 ×4; 96367 ×2; 84443; 82435; 82550 ×4; 82947; 84484 ×4; 84132; 84295; 80053; 82803; 83880 ×2; 85025; 85610; 85730; 85018; 87040 ×2; 87071; 87205; 87804 ×2; 83605 ×4; 87426; 36415 ×2; 71045; 93306; 93356; 99291; 96375; 93005; 36600; 94640; 84145; 83735; 80048; 85027; 97161; 97116; 94760; 94660; J0696 ×2; J3490 ×3; J1938 ×3; G0378 ×8; J3475; 80076; 94664; 96374